=== PATIENT | female | born 1995 | race Caucasian/White ===

== ENCOUNTER 2019-05-07 10:08 | Emergency (ER) | payer BC ==
[2019-05-07 10:13] VITALS: BP 108/72; PULSE 83; TEMP 98.6; BMI 23.1
[2019-05-07] MEDS ORDERED: IBUPROFEN 400 MG TABLET (FP) PO ONE ×2 (10:24→10:26)
--- NOTE | 2019-05-07 10:30 | PDOC ---
History of Present Illness - General Chief Complaint: Headache Stated Complaint: HEADACHE Time Seen by Provider: 05/07/19 10:11 History Source: Patient, Parent(s) - History of Present Illness Timing/Duration: reports: other Past History - Past Medical History Allergies/Adverse Reactions: Allergies Allergy/AdvReac Type Severity Reaction Status Date / Time No Known Allergies Allergy Verified 05/07/19 10:13 Home Medications: Ambulatory Orders NK [No Known Home Medication] 05/07/19 COPD: No Kidney Stones: (only has one kidney) Other medical history: migranes - Surgical History Abdominal Surgery: Yes (kidney transplant, re-implantation of bladder as an infant) - Suicide/Smoking/Psychosocial Hx Smoking History: Never smoked Hx Alcohol Use: No Drug/Substance Use Hx: No Review of Systems - Review of Systems HEENTM: No: Blurred Vision Neurological: Yes: Headache. No: Numbness, Weakness, Dizziness *Physical Exam - Vital Signs Last Vital Signs Temp Pulse Resp BP Pulse Ox 98.6 F 83 18 108/72 98 05/07/19 10:10 05/07/19 10:10 05/07/19 10:10 05/07/19 10:10 05/07/19 10:10 - Physical Exam General Appearance: Yes: Appropriately Dressed. No: Apparent Distress HEENT: positive: Normal Voice Neck: positive: Supple Respiratory/Chest: negative: Respiratory Distress Neurologic: positive: lead recoverer II-XII NML intact, Fully Oriented, Alert, Normal Mood/ Affect, Motor Strength 5/5 Medical Decision Making - Medical Decision Making 05/07/19 10:25 23 yo F, endorses history of migraines with negative neuroimaging in the past, follows up with neuro and currently on medication for migraine to take as needed , but states medication has never relieved her headaches. Does not remember name of meds at this point. Came in today because started having pressure in the back of her head since last night that felt somewhat different from her migraines though admits that her her migraines is usually located in different locations. No dizziness, nausea, vomiting or visual changes at this time. Pt states her neuro recommended botox but pt and mother currently refusing procedure. States she gets almost daily HAs. Did not try anything new for current headache See exam SCHROEDER H/o migraines Neg neuroimaging in past Gets almost daily HAs On home meds prn SCHROEDER but does not help Refusing botox rec by her neuro Well ying w/ intact neuro exam -dose of motrin given here -To f/u with her neurologist *DC/Admit/Observation/Transfer Diagnosis at time of Disposition: H/O migraine Headache Qualifiers: Headache type: unspecified Headache chronicity pattern: chronic headache Intractability: not intractable Qualified Code(s): R51 - Headache - Discharge Dispostion Disposition: HOME Condition at time of disposition: Good - Referrals - Patient Instructions Additional Instructions: Take motrin, tylenol or exedrine for headache as needed and follow up with your neurologist this week for further management - Post Discharge Activity
== END 2019-05-07 10:37 | disposition home or self-care (01) ==
LOC: JERFT 10:08
DX: R51 Headache (principal); Z94.0 Kidney transplant status
CPT/HCPCS: 99281-25